=== PATIENT | male | born 1950 | race Caucasian/White ===

== ENCOUNTER 2016-10-15 13:35 | Emergency (ER) | payer OTHER ==
[~2016-10-15] VITALS: Ht 175.3 cm; Wt 109.5 kg
[2016-10-15 13:52] VITALS: Ht 175.3 cm; Wt 109.5 kg
[2016-10-15] MEDS ORDERED: LIDOCAINE 1% (MDV) 20 ML INJ SC ONE (16:30)
--- NOTE | 2016-10-15 17:10 | RADRPT ---
PROCEDURE: XR Foot. CLINICAL INDICATION: Pain TECHNIQUE: AP, lateral and oblique views of the right foot was obtained. The images were reviewed on a PACS workstation. COMPARISON: None. FINDINGS: No evidence of radiopaque foreign body. Irregularity of the medial base of the distal fifth pharynx raising the question of nondisplaced fracture or overlapping structures. Correlate with direct ins pection. No other fracture or dislocation. No soft tissue abnormality. IMPRESSION: 1. Irregularity of the medial base of the distal cephalic trace question nondisplaced fracture vers us overlapping structures. Correlate with direct inspection. 2. No radiopaque foreign body or soft tissue abnormality. RPTAT:AAJJ Darcy Lee Physician Date Time Electronically viewed and signed by Physician Yonathan on 10/15/2016 17:09 JAMES/
--- NOTE | 2016-10-15 17:15 | ERD ---
ER Documentation Chief Complaint Date/Time DATE: 10/15/16 TIME: 17:11 Chief Complaint right 1st and 2nd toe lac HPI This patient is a 65-year-old male with history of hypertension presenting to the emergency department for laceration to his right fourth and fifth toes after near falling onto his foot this morning causing injury. There was mild bleeding after the incident occurred which was controlled. The patient's tetanus is up-to-date within the past 2 months. The patient reports very mild pain associated with the laceration. The patient denies any fevers, chills, inability to ambulate, or other symptoms. ROS All systems reviewed and are negative except as per history of present illness. Allergies Allergies: Coded Allergies: No Known Drug Allergy (Verified Allergy, Unknown, 10/15/16) PMhx/Soc Medical and Surgical Hx: pt denies Medical Hx, pt denies Surgical Hx Hx Miscellaneous Medical Probl: Yes (pinched nerve(lower back)) Hx Alcohol Use: Yes (6 pk/day) Hx Substance Use: No Hx Tobacco Use: No Smoking Status: Never smoker FmHx Noncontributory for chief complaint Physical Exam Vitals Vital Signs Date Time Temp Pulse Resp B/P Pulse Ox O2 Delivery O2 Flow Rate FiO2 10/15/16 13:52 98.5 74 20 128/77 98 Physical Exam INITIAL VITAL SIGNS: Reviewed by me. GENERAL: Alert and interactive. No acute distress. HEAD: Head is normocephalic and atraumatic. EYES: EOMI. No scleral icterus. No conjunctival injection. ENT: Moist mucosa. NECK: Supple. Full range of motion. RESPIRATORY: Normal respiratory effort. Clear breath sounds bilaterally. No wheezing, rales, or rhonchi. CV: Regular rate and rhythm. Normal S1 S2. No S3 or S4. No murmurs. ABDOMEN: Soft, non-distended, non-tender. No guarding. No rebound. No masses. EXTREMITIES: A 3 cm superficial laceration to the dorsal aspect of the right fifth toe with mild active bleeding but no foreign bodies present. Additionally there is a 1 cm superficial laceration to the dorsal aspect of the right fourth toe with mild active bleeding but no foreign bodies present. SKIN: Warm and dry. NEUROLOGIC: Alert and oriented x 4. Speech is normal. Moves all extremities equally. No motor or sensory deficits noted. Results 24 hrs Current Medications Medications (Trade) Dose Ordered Sig/Bernadette Route PRN Reason Start Time Stop Time Status Last Admin Dose Admin Lidocaine (Xylocaine 1% (Mdv) 20 ml) 20 ml ONCE ONCE SC 10/15/16 16:30 10/15/16 16:31 DC Procedures/MDM 65-year-old male presents to 2 lacerations to his right fourth and fifth toes. Laceration Repair #1 by me: Anesthesia: 1% lidocaine locally Location: Right fifth toe Tendon/Joint/Nerves: No injury Foreign body: None detected after copious irrigation and exploration Technique: Simple Interrupted Sutures Complexity: No subcutaneous sutures/mucosal repair/ edge excision Post Closure Length: 3 cm Patient's bleeding was easily controlled in the department and there is no indication of anemia. No evidence of compartment syndrome, neurologic injury, vascular injury, open joint, tendon laceration, or foreign body. Patient is appropriate for outpatient follow up. 48 hour wound check. Scar minimization instructions given. Laceration Repair #2 by me: Anesthesia: 1% lidocaine locally Location: Right fourth toe Tendon/Joint/Nerves: No injury Foreign body: None detected after copious irrigation and exploration Technique: Simple Interrupted Sutures Complexity: No subcutaneous sutures/mucosal repair/ edge excision Post Closure Length: 1 cm Patient's bleeding was easily controlled in the department and there is no indication of anemia. No evidence of compartment syndrome, neurologic injury, vascular injury, open joint, tendon laceration, or foreign body. Patient is appropriate for outpatient follow up. 48 hour wound check. Scar minimization instructions given. Departure Diagnosis: Primary Impression: Laceration Additional Impression: Toe fracture, right Condition: Stable Referrals: LESTER REYES MD,RADHA LOYA MD, MD CHASE,ELLIOT Galarza MD Additional Instructions: Return to the department in 48 hours for wound recheck. Keep the area clean, dry, and covered at all times. Return in 10 days for suture removal. Follow-up with your primary care physician within 1 week. Return to the emergency department immediately should you have any new or worsening symptoms, uncontrolled fevers, or other unexplained symptoms. Take all medications as directed. SHIVA HENNESSY PA-C Oct 15, 2016 17:15
[2016-10-15] MEDS ORDERED: NAPR-260 PO (18:35)
[2016-10-15] MEDS ORDERED: HYDR-906 PO (18:35)
[2016-10-15] MEDS ORDERED: CEPH-443 PO (18:51)
[2016-10-15 19:24] VITALS: BP 189/91; PULSE 88; RESP 20; TEMP 97.8
== END 2016-10-15 19:24 | disposition home or self-care (01) ==
LOC: FTE 13:35
DX: S91.114A Laceration without foreign body of right lesser toe(s) without damage to nail, initial encounter (principal); S92.501A Displaced unspecified fracture of right lesser toe(s), initial encounter for closed fracture; W20.8XXA Other cause of strike by thrown, projected or falling object, initial encounter; Y92.9 Unspecified place or not applicable
CPT/HCPCS: 73630